=== PATIENT | female | born 1965 | race Caucasian/White ===

== ENCOUNTER 2018-11-29 06:37 | Day surgery (SDC) | payer OTHER ==
[~2018-11-29 06:37] MED LIST: COREG CR20 MG PO; CYMBALTA60 MG PO; GLUCOPHAGE XR500 MG PO; HYDROCHLOROTH12.5 M1 PO; SINGULAIR10 MG PO; SYNTHROID100 MCG PO; TRAZODONE HCL100 MG PO; XANAX1 MG PO; XYZAL5 MG PO
[2018-11-29] MEDS ORDERED: ULTRACET PO (10:29)
[2018-11-29] MEDS ORDERED: MACROBID 100 M100 MG PO (10:29)
== END 2018-11-29 15:04 | disposition home or self-care (01) ==
LOC: CIR.AMB 06:37
DX: N81.3 Complete uterovaginal prolapse (principal)